=== PATIENT | female | born 2000 | race Native Hawaiian/Other Pacific Islander ===

== ENCOUNTER 2018-10-08 09:45 | Outpatient (CLI) | payer OTHER | END 2018-10-08 19:48 | disposition home or self-care (01) | LOC: LABW 09:45 | DX: Z34.02 Encounter for supervision of normal first pregnancy, second trimester (principal) | CPT/HCPCS: 36415; 82951 ==

== ENCOUNTER 2019-01-22 00:10 | Emergency (ER) | payer OTHER ==
[~2019-01-22] VITALS: Ht 157.5 cm; Wt 74.8 kg
[2019-01-22 00:52] LABS: PLATELET COUNT 315 K/uL (152-353)
[2019-01-22 01:19] LABS: POTASSIUM 3.7 mmol/L (3.6-5.2)
[2019-01-22 02:21] VITALS: BP 129/75; TEMP 98.6
== END 2019-01-22 02:22 | disposition home or self-care (01) ==
LOC: ED 00:10
PROVIDERS: Emergency Medicine
DX: R10.13 Epigastric pain (principal); K59.09 Other constipation
CPT/HCPCS: 36415; 80053; 81000; 81025; 82150; 83690; 85027; 86318; 96365; 96375; 99284; J1885; J2405

== ENCOUNTER 2019-03-14 09:02 | Emergency (ER) | payer OTHER ==
[~2019-03-14] VITALS: Ht 154.9 cm; Wt 68.0 kg
[2019-03-14 09:05] VITALS: TEMP 97.7
[2019-03-14 10:25] VITALS: BP 127/74
== END 2019-03-14 10:25 | disposition home or self-care (01) ==
LOC: ED 09:02
DX: K29.00 Acute gastritis without bleeding (principal)
CPT/HCPCS: 81000; 81025; 93005; 99283

== ENCOUNTER 2019-03-17 17:56 | Outpatient (CLI) | payer OTHER | END 2019-03-17 19:16 | disposition short-term general hospital (02) | LOC: AMB 17:56 | DX: K91.86 Retained cholelithiasis following cholecystectomy (principal) | CPT/HCPCS: A0425; A0427 ==

== ENCOUNTER 2019-03-29 10:44 | Outpatient (CLI) | payer OTHER | END 2019-03-29 23:14 | disposition home or self-care (01) | LOC: LABW 10:44 | DX: R74.8 Abnormal levels of other serum enzymes (principal) | CPT/HCPCS: 36415; 86706; 86708; 86803; 87350 ==

== ENCOUNTER 2019-04-08 10:17 | Outpatient (CLI) | payer OTHER | END 2019-04-08 23:25 | disposition home or self-care (01) | LOC: LABW 10:17 | DX: R74.8 Abnormal levels of other serum enzymes (principal) | CPT/HCPCS: 36415; 80076 ==

== ENCOUNTER 2019-05-09 12:22 | Outpatient (CLI) | payer OTHER | END 2019-05-09 19:19 | disposition home or self-care (01) | LOC: LABW 12:22 | DX: R74.8 Abnormal levels of other serum enzymes (principal) | CPT/HCPCS: 36415; 80076 ==

== ENCOUNTER 2021-04-22 19:33 | Emergency (ER) | payer OTHER ==
[~2021-04-22] VITALS: Ht 157.5 cm; Wt 76.2 kg
[2021-04-22] MEDS ORDERED: ZOLOFT25 MG PO (19:56)
[2021-04-22 20:20] LABS: PLATELET COUNT 198 K/uL (152-353)
[2021-04-22 21:50] VITALS: BP 110/60; TEMP 98.1
== END 2021-04-22 21:50 | disposition home or self-care (01) ==
LOC: ED 19:33
PROVIDERS: Emergency Medicine
DX: O21.8 Other vomiting complicating pregnancy (principal); K52.89 Other specified noninfective gastroenteritis and colitis; O23.32 Infections of other parts of urinary tract in pregnancy, second trimester; Z3A.18 18 weeks gestation of pregnancy
CPT/HCPCS: 36415; 80053; 81000; 82150; 83690; 85027; 87086; 87088; 96360; 96365; 96375; 99284; J0696; J2405